=== PATIENT | female | born 1930 | race Caucasian/White ===

== ENCOUNTER 2017-04-28 12:15 | Inpatient (IN) | payer OTHER ==
[~2017-04-28] VITALS: Ht 162.6 cm; Wt 75.5 kg
[~2017-04-28 12:15] MED LIST: ALEVE220 MG PO; CALTRATE 6001 TABLE1 PO; COZAAR100 MG PO; FLAXSEED OIL1000 M4 PO; KEFLEX500 MG PO; LATANOPROST2.5 ML RIGHT EYE; NORVASC5 MG PO; OXYCODONE HCL5 MG PO; SYNTHROID100 MCG PO; VALIUM5 MG PO; VITAMIN D250000 UNIT PO
[2017-04-28 12:58] LABS: EOSINOPHIL COUNT 0.1 K/uL (0-0.3); HEMATOCRIT 39.7 % (36.0-46.0); IMMATURE GRANULOCYTE (%) 0.5 % (0.0-0.7); LYMPHOCYTE COUNT 1.3 K/uL (1.0-2.8); MCH 29.6 PG (29.0-34.0); MCHC 33.2 G/DL (30.0-36.0); MEAN PLAT.VOLUME 10.9 uM^3 (9.5-12.4); MONOCYTE (%) 9.2 % (3-12); MONOCYTE COUNT 0.6 K/uL (0-0.8); NEUTROPHIL (%) 65.8 % (45-76); PLATELET COUNT 236 K/uL (156-360); RBC DIS.WIDTH-CV 13.3 % (11.8-14.6); RBC DIS.WIDTH-SD 43.8 % (39-53); RED BLOOD COUNT 4.46 M/uL (3.80-5.20); WHITE BLOOD COUNT 6.1 K/uL (4.1-10.2)
[2017-04-28 13:12] LABS: CHLORIDE 107 mEq/L (99-109); POTASSIUM 3.6 mEq/L (3.7-5.4); SODIUM 141 mEq/L (136-147)
[2017-04-28 13:14] LABS: GLUCOSE 123 mg/dL (70-99)
[2017-04-28 13:15] LABS: ANION GAP 11 MEQ/L (2-14)
[2017-04-28 13:17] LABS: GFR ESTIMATE (CALCULATED) > 59 mL/min/
[2017-04-28 13:18] LABS: UREA NITROGEN (BUN) 19 mg/dL (9-23)
[2017-04-28 13:49] LABS: PROTHROMBIN TIME 11.6 SEC (10.2-12.9)
[2017-04-28 16:00] VITALS: BP 132/91
[2017-04-28 17:10] VITALS: BP 163/74
[2017-04-28 20:21] VITALS: BP 175/80
[2017-04-29] VITALS (8 sets, daily range): BP systolic 133–189; BP diastolic 4–84
[2017-04-29 07:24] LABS: HEMATOCRIT 36.5 % (36.0-46.0); MCH 29.7 PG (29.0-34.0); MCHC 33.2 G/DL (30.0-36.0); MCV 89.5 FL (83-99); MEAN PLAT.VOLUME 11.1 uM^3 (9.5-12.4); PLATELET COUNT 204 K/uL (156-360); RBC DIS.WIDTH-CV 13.6 % (11.8-14.6); RBC DIS.WIDTH-SD 44.5 % (39-53); RED BLOOD COUNT 4.08 M/uL (3.80-5.20); WHITE BLOOD COUNT 10.8 K/uL (4.1-10.2)
[2017-04-29 08:05] LABS: ANION GAP 10 MEQ/L (2-14); CHLORIDE 107 MEQ/L (99-109); GFR ESTIMATE (CALCULATED) > 59 mL/min/; GLUCOSE 109 mg/dL (70-99); SAMPLE HEMOLYSIS CHECK 0; SAMPLE ICTERIC CHECK 0; SAMPLE LIPEMIA CHECK 0; SODIUM 142 MEQ/L (136-147); UREA NITROGEN (BUN) 19 mg/dL (9-23)
[2017-04-30 00:47] VITALS: BP 159/67
[2017-04-30 05:04] VITALS: BP 145/65
[2017-04-30 06:29] LABS: HEMATOCRIT 29.8 % (36.0-46.0); MCH 29.7 PG (29.0-34.0); MCHC 32.6 G/DL (30.0-36.0); MCV 91.1 FL (83-99); MEAN PLAT.VOLUME 11.5 uM^3 (9.5-12.4); PLATELET COUNT 184 K/uL (156-360); RBC DIS.WIDTH-CV 13.8 % (11.8-14.6); RBC DIS.WIDTH-SD 46.3 % (39-53); RED BLOOD COUNT 3.27 M/uL (3.80-5.20); WHITE BLOOD COUNT 10.3 K/uL (4.1-10.2)
[2017-04-30 06:54] LABS: ANION GAP 8 MEQ/L (2-14); CHLORIDE 108 MEQ/L (99-109); GFR ESTIMATE (CALCULATED) > 59 mL/min/; GLUCOSE 109 mg/dL (70-99); POTASSIUM 4.1 MEQ/L (3.7-5.4); SAMPLE HEMOLYSIS CHECK 0; SAMPLE ICTERIC CHECK 0; SAMPLE LIPEMIA CHECK 0; SODIUM 142 MEQ/L (136-147); UREA NITROGEN (BUN) 26 mg/dL (9-23)
[2017-04-30 11:32] VITALS: BP 143/63
[2017-04-30 15:49] VITALS: BP 158/65
[2017-04-30 19:53] VITALS: BP 159/68
[2017-04-30 23:16] VITALS: BP 120/71
[2017-05-01 06:57] LABS: HEMATOCRIT 29.4 % (36.0-46.0); MCV 91.3 FL (83-99)
[2017-05-01 07:15] VITALS: BP 155/70
[2017-05-01 15:35] VITALS: BP 175/74
[2017-05-01 23:27] VITALS: BP 138/77
[2017-05-02 07:04] LABS: HEMATOCRIT 29.3 % (36.0-46.0); MCH 29.1 PG (29.0-34.0); MCHC 32.4 G/DL (30.0-36.0); MCV 89.6 FL (83-99); MEAN PLAT.VOLUME 11.5 uM^3 (9.5-12.4); PLATELET COUNT 228 K/uL (156-360); RBC DIS.WIDTH-CV 13.4 % (11.8-14.6); RBC DIS.WIDTH-SD 44.2 % (39-53); RED BLOOD COUNT 3.27 M/uL (3.80-5.20); WHITE BLOOD COUNT 8.8 K/uL (4.1-10.2)
[2017-05-02 07:22] LABS: ANION GAP 13 MEQ/L (2-14); CHLORIDE 112 MEQ/L (99-109); GFR ESTIMATE (CALCULATED) > 59 mL/min/; GLUCOSE 92 mg/dL (70-99); POTASSIUM 3.4 MEQ/L (3.7-5.4); SAMPLE HEMOLYSIS CHECK 0; SAMPLE ICTERIC CHECK 0; SAMPLE LIPEMIA CHECK 0; SODIUM 146 MEQ/L (136-147); UREA NITROGEN (BUN) 18 mg/dL (9-23)
[2017-05-02 08:07] VITALS: BP 120/78
[2017-05-02 13:26] LABS: MAGNESIUM 2.1 mg/dl (1.3-2.7)
[2017-05-02 15:36] VITALS: BP 167/76
[2017-05-03 00:09] VITALS: BP 175/75
[2017-05-03 06:21] LABS: HEMATOCRIT 29.5 % (36.0-46.0); MCH 29.3 PG (29.0-34.0); MCHC 32.5 G/DL (30.0-36.0); MCV 89.9 FL (83-99); PLATELET COUNT 283 K/uL (156-360); RBC DIS.WIDTH-CV 13.8 % (11.8-14.6); RBC DIS.WIDTH-SD 44.9 % (39-53); RED BLOOD COUNT 3.28 M/uL (3.80-5.20); WHITE BLOOD COUNT 8.4 K/uL (4.1-10.2)
[2017-05-03 07:04] LABS: POTASSIUM ND MEQ/L (3.7-5.4)
[2017-05-03 07:06] LABS: ANION GAP 15 MEQ/L (2-14); CHLORIDE 112 MEQ/L (99-109); GFR ESTIMATE (CALCULATED) > 59 mL/min/; GLUCOSE 101 mg/dL (70-99); SAMPLE HEMOLYSIS CHECK 2; SAMPLE ICTERIC CHECK 0; SAMPLE LIPEMIA CHECK 0; SODIUM 146 MEQ/L (136-147); UREA NITROGEN (BUN) 18 mg/dL (9-23)
[2017-05-03 08:08] VITALS: BP 162/77
[2017-05-03 09:49] LABS: POTASSIUM 3.5 MEQ/L (3.7-5.4)
[2017-05-03 16:30] VITALS: BP 181/81
[2017-05-03 20:19] VITALS: BP 150/73
[2017-05-04] VITALS: BP 177/82
[2017-05-04 07:44] LABS: HEMATOCRIT 27.5 % (36.0-46.0); MCH 29.4 PG (29.0-34.0); MCHC 33.1 G/DL (30.0-36.0); MEAN PLAT.VOLUME 11.4 uM^3 (9.5-12.4); NRBC (%) 0.3 /100 WBC (0-0); PLATELET COUNT 269 K/uL (156-360); RBC DIS.WIDTH-CV 13.7 % (11.8-14.6); RBC DIS.WIDTH-SD 43.7 % (39-53); RED BLOOD COUNT 3.09 M/uL (3.80-5.20); WHITE BLOOD COUNT 7.9 K/uL (4.1-10.2)
[2017-05-04 08:00] VITALS: BP 164/81
[2017-05-04 08:12] LABS: ANION GAP 10 MEQ/L (2-14); CHLORIDE 110 MEQ/L (99-109); GFR ESTIMATE (CALCULATED) > 59 mL/min/; GLUCOSE 113 mg/dL (70-99); POTASSIUM 3.5 MEQ/L (3.7-5.4); SAMPLE HEMOLYSIS CHECK 0; SAMPLE ICTERIC CHECK 0; SAMPLE LIPEMIA CHECK 0; SODIUM 145 MEQ/L (136-147); UREA NITROGEN (BUN) 19 mg/dL (9-23)
[2017-05-04 10:37] LABS: MAGNESIUM 2.1 mg/dl (1.3-2.7)
[2017-05-04 16:41] VITALS: BP 161/75
[2017-05-04 20:12] VITALS: BP 162/76
[2017-05-05 04:00] VITALS: BP 188/81
[2017-05-05 07:14] LABS: ANION GAP 8 MEQ/L (2-14); CHLORIDE 107 MEQ/L (99-109); GFR ESTIMATE (CALCULATED) > 59 mL/min/; GLUCOSE 102 mg/dL (70-99); SAMPLE HEMOLYSIS CHECK 0; SAMPLE ICTERIC CHECK 0; SAMPLE LIPEMIA CHECK 0; SODIUM 141 MEQ/L (136-147); UREA NITROGEN (BUN) 16 mg/dL (9-23)
[2017-05-05 07:37] LABS: HEMATOCRIT 28.5 % (36.0-46.0); MCH 29.8 PG (29.0-34.0); MCV 90.5 FL (83-99); MEAN PLAT.VOLUME 11.7 uM^3 (9.5-12.4); PLATELET COUNT 293 K/uL (156-360); RBC DIS.WIDTH-CV 14.3 % (11.8-14.6); RBC DIS.WIDTH-SD 45.3 % (39-53); RED BLOOD COUNT 3.15 M/uL (3.80-5.20); WHITE BLOOD COUNT 6.8 K/uL (4.1-10.2)
[2017-05-05 08:39] VITALS: BP 168/74
[2017-05-05] MEDS ORDERED: DOCUSATE SODIU100 MG PO (11:41)
[2017-05-05] MEDS ORDERED: LOPRESSOR25 MG PO (11:41)
[2017-05-05] MEDS ORDERED: ELIQUIS2.5 MG PO (11:41)
== END 2017-05-05 15:41 | DRG 481 ==
LOC: EME 12:15 → EDOF 14:49 → 3EAST 14:49 → ENRESERV 14:50 → 3EAST 16:28
PROVIDERS: Emergency Medicine; Family Medicine; Internal Medicine; Orthopaedic Surgery; Physician Assistant
PROC: 0QS636Z Reposition Right Upper Femur with Intramedullary Internal Fixation Device, Percutaneous Approach (ICD-10-PCS; principal; 2017-04-29)
DX: S72.141A Displaced intertrochanteric fracture of right femur, initial encounter for closed fracture (principal); M80.08XA Age-related osteoporosis with current pathological fracture, vertebra(e), initial encounter for fracture; K56.7 Ileus, unspecified; S42.214A Unspecified nondisplaced fracture of surgical neck of right humerus, initial encounter for closed fracture; W01.0XXA Fall on same level from slipping, tripping and stumbling without subsequent striking against object, initial encounter; K91.89 Other postprocedural complications and disorders of digestive system; E03.9 Hypothyroidism, unspecified; E87.6 Hypokalemia; H40.9 Unspecified glaucoma; F41.9 Anxiety disorder, unspecified; I10 Essential (primary) hypertension; M19.90 Unspecified osteoarthritis, unspecified site; Z87.891 Personal history of nicotine dependence; Y92.480 Sidewalk as the place of occurrence of the external cause; Z90.710 Acquired absence of both cervix and uterus; Z96.641 Presence of right artificial hip joint; Z88.0 Allergy status to penicillin; Z88.6 Allergy status to analgesic agent; Z88.1 Allergy status to other antibiotic agents; Z88.5 Allergy status to narcotic agent; Z87.440 Personal history of urinary (tract) infections
CPT/HCPCS: 71010; 73030; 73080; 73502; 73552; 74000; 74176; 76000; 80048; 83735; 84999; 85014; 85018; 85025; 85027; 85610; 93005; 94799; 97530 GO; 97530 GP; 99281; 99285; C1713; J0330; J1100; J1170; J1644; J1885; J2270; J2405; J2710; J2765; J3010; J3480; J7030; J7120